=== PATIENT | male | born 1985 | race Caucasian/White ===

== ENCOUNTER 2023-04-02 19:11 | Emergency (ER) | payer OTHER ==
[~2023-04-02] VITALS: Ht 185.4 cm; Wt 117.0 kg
[2023-04-02] MEDS ORDERED: MORPHINE 2 MG/ML 1ML VIAL IV PRN (19:30)
[2023-04-02] MEDS ORDERED: NITROGLYCERIN 0.4MG SUBL TABLET SL PRN (19:30)
[2023-04-02 20:06] LABS: VENOUS BASE EXCESS 1.6 (-2.0-2.0); VENOUS HCO3 24.9 MMOL/L (23.0-27.0); VENOUS O2 SATURATION 92.8 % (60.0-80.0); VENOUS PARTIAL PRESSURE CO2 35.7 mmHg (38.0-50.0); VENOUS PARTIAL PRESSURE O2 60.4 mmHg (30.0-50.0); VENOUS PH 7.461 UNITS (7.330-7.430); VENOUS STANDARD HCO3 25.7 MMOL/L
[2023-04-02 20:15] LABS: BASO # 0.1 10^3/uL (0.0-0.2); BASO % 0.6 % (0.0-1.0); EOS # 0.2 10^3/uL (0.0-0.5); EOS % 2.2 % (0.0-3.0); HEMATOCRIT 53.5 % (42.0-52.0); LYMPH # 2.3 10^3/uL (1.5-5.0); LYMPH % 21.6 % (24.0-44.0); MEAN CORPUSCULAR HEMOGLOBIN 29.8 pg (27.0-33.0); MEAN CORPUSCULAR HGB CONC 35.5 g/dl (32.0-36.5); MONO % 9.1 % (2.0-8.0); NEUTROPHILS # 7.1 10^3/uL (1.5-8.5); NEUTROPHILS % 65.9 % (36.0-66.0); PLATELET COUNT, AUTOMATED 301 10^3/uL (150-450); RED BLOOD COUNT 6.37 10^6/uL (4.30-6.10); WHITE BLOOD COUNT 10.7 10^3/uL (4.0-10.0)
[2023-04-02 20:33] LABS: CK-MB VALUE MASS 1.6 NG/ML (<3.6)
[2023-04-02 20:37] LABS: MB/CK RELATIVE INDEX 0.76 (< OR =4)
[2023-04-02 21:15] LABS: CK-MB VALUE MASS 1.1 NG/ML (<3.6); LIPASE 45 U/L (12-53)
[2023-04-02 21:17] LABS: ALBUMIN 4.1 G/DL (3.2-5.2); ALKALINE PHOSPHATASE 80 U/L (46-116); ALT/SGPT 68 U/L (7.0-40); AST/SGOT 28 U/L (<34); BILIRUBIN,DIRECT 0.3 MG/DL (<0.4); BILIRUBIN,TOTAL 1.1 MG/DL (0.3-1.2); BLOOD UREA NITROGEN 17 MG/DL (9-23); CALCIUM LEVEL 9.1 MG/DL (8.5-10.1); CARBON DIOXIDE LEVEL 27 MMOL/L (20-31); CHLORIDE LEVEL 103 MMOL/L (98-107); CREATININE FOR GFR 0.98 MG/DL (0.70-1.30); GLOMERULAR FILTRATION RATE > 60.0 (>60); GLUCOSE, FASTING 124 MG/DL (60-100); POTASSIUM SERUM 3.8 MMOL/L (3.5-5.1); SODIUM LEVEL 137 MMOL/L (136-145)
[2023-04-02 21:19] LABS: THYROID STIMULATING HORMONE 1.457 uIU/ML (0.55-4.78)
[2023-04-02 21:22] LABS: CPK CREATINE PHOSPHOKINASE 191 U/L (46-171); MB/CK RELATIVE INDEX 0.57 (< OR =4)
[2023-04-02 22:00] VITALS: TEMP 98.2
[2023-04-02 23:30] VITALS: BP 134/92; O2SAT 94
== END 2023-04-02 23:40 | disposition home or self-care (01) ==
LOC: M ED 19:11
DX: R07.9 Chest pain, unspecified (principal); I10 Essential (primary) hypertension; F41.9 Anxiety disorder, unspecified; Z87.891 Personal history of nicotine dependence